=== PATIENT | female | born 1975 | race Caucasian/White ===

== ENCOUNTER → 2021-09-04 16:53 | Outpatient (CLI) | payer BC, SELFPAY ==
--- NOTE | ~2021-09-04 | MM_ITS ---
EXAMINATION: MM screening vin BI w vandana HISTORY: Screening mammogram TECHNIQUE: Craniocaudal and mediolateral oblique 3-D tomosynthesis images were obtained and synthetic 2-D images were generated. CAD analysis was submitted and interpreted. COMPARISON: 03/01/2019 bilateral screening mammogram 08/25/2017 bilateral diagnostic mammography and bilateral Limited breast ultrasound 08/11/2017 bilateral digital screening mammogram BREAST PARENCHYMAL COMPOSITION: The breasts are heterogeneously dense, which may obscure small masses . FINDINGS: There is no evidence of suspicious mass, calcification, or architectural distortion to sugg est malignancy in either breast. There has been no suspicious interval change. IMPRESSION: 1. No mammographic evidence of malignancy. 2. Recommend routine screening mammography in one year. BI-RADS Category 1: Negative Reviewed, dictated and finalized at location A.
== END ==
PROVIDERS: Visit Provider Nurse Practitioner
DX: Z12.31 Encounter for screening mammogram for malignant neoplasm of breast (principal)
CPT/HCPCS: 77063; 77067

== ENCOUNTER 2021-09-15 01:43 | Day surgery (SDC) | payer BC, SELFPAY ==
[2021-09-01 13:25] VITALS: BMI 34.9
--- NOTE | 2021-09-12 14:32 | PM.HPGS ---
History of Present Illness History of Present Illness Consent: Risks, benefits, and alternatives have been discussed and questions answered. Patient agrees to proceed with procedure. Chief complaint: neoplasm screening Narrative: Anna Castellanos is a 46 year old female Referred for colon cancer screening. This is her 1st colonoscopy. She is not aware of any family history of colon cancer. Review of Systems Review of Systems: All systems reviewed & are unremarkable except as noted in HPI and below PMFSH Surgical History Surgical History History of cholecystectomy 2013 History of gastric bypass 2018 Social History Social History Smoking status: Never smoker Alcohol intake: never Substance use: never Substance use type: does not use Living arrangements: with family Spiritual care concerns: No Meds Home Medications and Allergies Home Medications Medication Instructions Recorded Confirmed Type norethindrone ac-eth estradiol 1.5 - 30 tablet PO DAILY 09/01/21 09/15/21 History [ ()] Allergies Allergy/AdvReac Type Severity Reaction Status Date / Time No Known Allergies Allergy Verified 09/15/21 08:45 Exam Resp: Auscultation: clear to auscultation bilaterally Cardio: Rate: regular rate Rhythm: regular rhythm GI: GI Palp: Yes Soft to palpation and No Tenderness to palpation present (GI) Assessment and Plan Assessment and plan (1) Colon cancer screening: Code(s): Z12.11 - Encounter for screening for malignant neoplasm of colon Status: Acute Assessment and Plan: Colonoscopy with possible biopsy or polypectomy or cautery or injection of substances.
[2021-09-15 08:46] VITALS: BP 134/89; PULSE 76; RESP 16; TEMP 36.9; O2SAT 100
[2021-09-15] MEDS: LACTATED RINGERS 1,000 ML 150 ML IV CONT (08:49)
--- NOTE | 2021-09-15 09:16 | P.PNAN_ITS ---
Anes - Initial Pre Proc Eval Procedure: Operation Date: 09/15/21 09:30 Proposed Procedures p Screening Colonoscopy - Rajendra Pierce MD Date/Time: 09/15/21 09:16 Surgeon: Rajendra Pierce MD Pre Op Diagnosis: neoplasm screening Patient Data Age: 46 Gender: F Height: 1.57 m Weight: 86.6 kg Last Vital Signs Temp 98.4 F 09/15/21 08:46 Pulse 76 09/15/21 08:46 Resp 16 09/15/21 08:46 BP 134/89 09/15/21 08:46 Pulse Ox 100 09/15/21 08:46 Allergies Allergy/AdvReac Type Severity Reaction Status Date / Time No Known Allergies Allergy Verified 09/15/21 08:45 Home Medications Medication Instructions Recorded Confirmed Type norethindrone ac-eth estradiol 1.5 - 30 tablet PO DAILY 09/01/21 09/15/21 History [ ()] Patient hx anesthesia problems: none Family hx anesthesia problems: none Results Review: All pre-operative results and documents have been reviewed as part of the pre-operative evaluation. [facility] Surgical History Surgical History History of cholecystectomy 2014 History of gastric bypass 2018 Social History Social History Smoking status: Never smoker Alcohol intake: never Substance use: never Substance use type: does not use Living arrangements: with family Spiritual care concerns: No Anes - Eval Final PreProcedure Day of Procedure 09/15/21 09:16 Patient weight: obese Heart: regular rate and rhythm Lungs: clear to auscultation Airway: Mallampati scale class II Neurological: alert and oriented Last oral intake: >/= 8 hours ASA classification: II Emergent: no Anesthetic plan: proceed Anesthesia type and monitoring: general GIVS and standard monitoring Results Review: All pre-operative results and documents have been reviewed as part of the pre-operative evaluation. Informed Consent: The patient's anesthetic plan and its attendant risks and benefits were discussed with the patient/family/POA. Questions were solicited and answers provided to the satisfaction of the patient/family/POA.
[2021-09-15 09:47] VITALS: BP 117/72; PULSE 78; RESP 18; O2SAT 100
[2021-09-15 09:57] VITALS: BP 127/79; PULSE 77; RESP 18; O2SAT 99
[2021-09-15 10:07] VITALS: BP 135/72; PULSE 68; RESP 20; O2SAT 100
== END 2021-09-15 10:14 | disposition home or self-care (01) ==
PROVIDERS: PCP Internal Medicine; Visit Provider Internal Medicine Gastroenterology
PROC: 0DJD8ZZ Inspection of Lower Intestinal Tract, Via Natural or Artificial Opening Endoscopic (ICD-10-PCS; CPT 45378; principal; 2021-09-15 09:30)
DX: Z12.11 Encounter for screening for malignant neoplasm of colon (principal); Z98.84 Bariatric surgery status
CPT/HCPCS: 45378; J2704; J7120

== ENCOUNTER 2021-12-07 07:18 | Outpatient (CLI) | payer BC, SELFPAY ==
--- NOTE | ~2021-12-07 | MR_ITS ---
EXAMINATION: MR brain/brain stem wo/w con DATE: 12/07/2021 08:18 INDICATION: Migraine headache TECHNIQUE: Magnetic resonance imaging (MRI) of the brain and brainstem was performed without and with 18 mL Multihance intravenous contrast. Sequences included sagittal and axial T1-weighted SE, axial d iffusion-weighted FS SE, axial 3D SWAN, axial T2-weighted FLAIR, and axial T2-weighted FSE. Postcontr ast axial, sagittal and coronal T1-weighted SE was obtained. Apparent diffusion coefficient (ADC) map s were created. COMPARISON: None. FINDINGS: There are no areas of restricted diffusion to suggest acute infarction. No intracranial hemorrhage or abnormal intracranial mass lesion. There are few scattered foci of nonspecific increased T2-weighted signal intensity in the subcortical white matter, 5 on the right and 3 on the left which is slightly greater than normal for age. There are no intraparenchymal signal abnormalities seen on the other pu lse sequences. The ventricles are symmetric and normal in size. There are no abnormal extra-axial flu id collections. Flow voids are seen in the cerebral arteries on the T2-weighted sequences consistent with their expected patency. There is mucosal thickening in the bilateral ethmoid and maxillary sinus es. Visualized orbits and soft tissues are unremarkable. There are no areas of abnormal enhancement o n the post contrast images. IMPRESSION: 1. A few scattered small foci of increased subcortical white matter T2 hyperintensity which is slight ly greater than expected for age which can be seen with chronic migraines. The differential diagnosis also includes premature chronic small vessel ischemic disease (especially if the patient has cardiov ascular risk factors), demyelinating disease such as multiple sclerosis, drug abuse, vasculitis, or r eactive astrocytosis (gliosis) secondary to nonspecific etiology. Reviewed, dictated and finalized at location A. IMPRESSION: 1. A few scattered small foci of increased subcortical white matter T2 hyperint ensity which is slightly greater than expected for age which can be seen with c hronic migraines. The differential diagnosis also includes premature chronic sm all vessel ischemic disease (especially if the patient has cardiovascular risk factors), demyelinating disease such as multiple sclerosis, drug abuse, vasculi tis, or reactive astrocytosis (gliosis) secondary to nonspecific etiology.
[2021-12-07 07:57] LABS: Estimated Glomerular Filt Rate > 60
== END 2021-12-07 07:19 | disposition home or self-care (01) ==
PROVIDERS: PCP Internal Medicine; Visit Provider Psychiatry & Neurology Neurology
DX: G43.909 Migraine, unspecified, not intractable, without status migrainosus (principal); R93.0 Abnormal findings on diagnostic imaging of skull and head, not elsewhere classified
CPT/HCPCS: 70553; A9577

== ENCOUNTER 2022-11-13 06:54 | Outpatient (RCR) | payer BC, SELFPAY ==
[2022-11-12 17:00] LABS: Hematocrit 26.6 % (37.0-47.0); Hemoglobin 7.2 g/dL (12.0-15.0); Mean Corpuscular HGB Conc 27.1 g/dl (32-36); Mean Corpuscular Volume 70.2 fl (80-100); Platelet Count Result 360 k/mm3 (150-375); Red Blood Count 3.79 M/mm3 (4.2-5.4); Red Cell Distribution Width 24.5 % (11.5-14.5); White Blood Count 4.8 K/mm3 (4.5-10.0)
[2022-11-13] VITALS (11 sets, daily range): BP systolic 115–140; BP diastolic 74–92; PULSE 65–98; RESP 16–18; TEMP 36.7–37.2; O2SAT 93–100
[2022-11-13] MEDS: SODIUM CHLORIDE 0.9% IV 250 ML 30 ML IV CONT (07:30)
[2022-11-13] MEDS: FUROSEMIDE INJ 40 MG/4 ML VIAL 20 MG IV PUSH (10:26)
== END 2023-02-10 23:59 | disposition home or self-care (01) ==
LOC: ANHCPCTRAN 06:54
PROVIDERS: PCP Internal Medicine; Visit Provider Internal Medicine
DX: D64.9 Anemia, unspecified (principal)
CPT/HCPCS: 36415; 36430; 85027; 86850; 86900; 86901; 86920; J1940; J7050; P9016

== ENCOUNTER 2022-11-25 16:20 | Outpatient (CLI) | payer BC, SELFPAY ==
--- NOTE | ~2022-11-25 | XR_ITS ---
EXAMINATION: XR knee RT min 4V DATE: 11/25/2022 16:41 INDICATION: Right knee pain. TECHNIQUE: 4 views of right knee including standing views were obtained. COMPARISON: None. FINDINGS: Bone alignment is normal. No fracture. There is mild tricompartmental osteoarthritis charac terized by marginal osteophytes. No joint space narrowing. No knee joint effusion. IMPRESSION: 1. Mild right knee osteoarthritis. Reviewed, dictated and finalized at location E.
== END 2022-11-25 16:21 | disposition home or self-care (01) ==
PROVIDERS: PCP Internal Medicine; Visit Provider Internal Medicine
DX: M17.11 Unilateral primary osteoarthritis, right knee (principal)
CPT/HCPCS: 73564

== ENCOUNTER → 2023-01-14 15:28 | Outpatient (CLI) | payer BC, SELFPAY ==
--- NOTE | ~2023-01-14 | MM_ITS ---
EXAMINATION: MM screening vin BI w vandana HISTORY: Screening mammogram TECHNIQUE: Craniocaudal and mediolateral oblique 3-D tomosynthesis images were obtained and synthetic 2-D images were generated. CAD analysis was submitted and interpreted. COMPARISON: 09/04/2021, 02/15/2019 BREAST PARENCHYMAL COMPOSITION:The breasts are heterogeneously dense, which may obscure small masses. FINDINGS: There is apparent increasing 2.7 cm ovoid density in the outer subareolar left breast. No s uspicious parenchymal abnormality seen in the right breast. Benign calcifications are unchanged. IMPRESSION: Suspected increasing 2.7 cm ovoid density/mass in the outer left subareolar region. Spot compression views and ultrasound are recommended for further evaluation. BI-RADS Category 0: Incomplete: Needs additional imaging evaluation. Reviewed, dictated and finalized at location . IMPRESSION: Suspected increasing 2.7 cm ovoid density/mass in the outer left subareolar reg ion. Spot compression views and ultrasound are recommended for further evaluati on. BI-RADS Category 0: Incomplete: Needs additional imaging evaluation.
== END ==
PROVIDERS: PCP Nurse Practitioner; Visit Provider Nurse Practitioner
DX: Z12.31 Encounter for screening mammogram for malignant neoplasm of breast (principal)
CPT/HCPCS: 77063; 77067

== ENCOUNTER 2023-02-16 14:24 | Outpatient (CLI) | payer BC, SELFPAY ==
--- NOTE | ~2023-02-16 | MMUS_ITS ---
EXAMINATION: MM diagnostic vin LT w vandana, US breast LT limited HISTORY: Possible left breast mass TECHNIQUE: Additional 3-D tomosynthesis images of the left breast were performed and synthetic 2-D im ages were generated. CAD analysis was submitted and interpreted. High resolution limited left breast ultrasound was performed. COMPARISON: 01/14/2023, 09/04/2021, 02/15/2019 BREAST PARENCHYMAL COMPOSITION: The breasts are heterogeneously dense, which may obscure small masses . FINDINGS: MAMMOGRAPHIC FINDINGS: There is an approximately 2.5 cm oval, obscured, equal density mass in the anterior third of the slig htly outer breast at 3:00 location near the nipple. No suspicious calcification or architectural dist ortion are identified. ULTRASOUND: There is a 3.2 x 1.4 cm oval, circumscribed, parallel, hypoechoic mass with no posterior features or internal vascularity at the 3:00 location near the nipple. IMPRESSION: 1. Indeterminate left breast mass. 2. Ultrasound-guided left breast biopsy is recommended. BI-RADS category 4, suspicious findings. Reviewed, dictated and finalized at location A. IMPRESSION: 1. Indeterminate left breast mass. 2. Ultrasound-guided left breast biopsy is recommended. BI-RADS category 4, suspicious findings.
== END 2023-02-16 14:25 ==
PROVIDERS: PCP Obstetrics & Gynecology Gynecology; Visit Provider Obstetrics & Gynecology Gynecology
DX: R92.8 Other abnormal and inconclusive findings on diagnostic imaging of breast (principal)
CPT/HCPCS: 76642; 77061; 77065; G0279

== ENCOUNTER 2023-03-08 02:37 | Day surgery (SDC) | payer BC, SELFPAY ==
[2023-01-08 13:32] VITALS: BMI 40.3
[2023-02-24 13:07] VITALS: BMI 40.3
--- NOTE | 2023-03-05 15:10 | PM.HPGS ---
History of Present Illness History of Present Illness Consent: Risks, benefits, and alternatives have been discussed and questions answered. Patient agrees to proceed with procedure. Chief complaint: Iron Deficiency Anemia Narrative: Anna Castellanos is a 47 year old female Referred for investigation of iron deficiency anemia. Recent hemoglobin was down to 7.2. MCV is also low suggestive of iron deficiency anemia. She had an unremarkable colonoscopy just over 1 year ago. however at that time there was retained stool in the colon. Review of Systems Review of Systems: All systems reviewed & are unremarkable except as noted in HPI and below PMFSH Surgical History Surgical History History of cholecystectomy 2013 History of gastric bypass 2017 Social History Social History Smoking status: Never smoker Alcohol intake: never Substance use: never Substance use type: does not use Living arrangements: with family Spiritual care concerns: No Meds Home Medications and Allergies Home Medications Medication Instructions Recorded Confirmed Type norethindrone acetate 1.5 1.5 - 30 tablet PO DAILY 09/01/21 01/08/23 History mg-ethinyl estradiol 30 mcg tablet (Junel) multivitamin 1 tablet PO DAILY 11/26/21 01/08/23 History cholecalciferol (vitamin D3) 50 50 mcg PO DAILY 01/08/23 01/08/23 History mcg (2,000 unit) capsule (Vitamin D3) ferrous sulfate 325 mg (65 mg 325 mg PO DAILY 01/08/23 01/08/23 History iron) tablet Allergies Allergy/AdvReac Type Severity Reaction Status Date / Time No Known Allergies Allergy Verified 03/08/23 09:03 Exam Resp: Auscultation: clear to auscultation bilaterally Cardio: Rate: regular rate Rhythm: regular rhythm GI: GI Palp: Yes Soft to palpation and No Tenderness to palpation present (GI) Assessment and Plan Assessment and plan (1) Iron deficiency anemia: Code(s): D50.9 - Iron deficiency anemia, unspecified Status: Acute Assessment and Plan: EGD with possible biopsy or dilatation or cautery.Colonoscopy with possible biopsy or polypectomy or cautery or injection of substances.
[2023-03-08 09:03] VITALS: BP 126/79; PULSE 71; RESP 18; TEMP 36.4; O2SAT 100
[2023-03-08] MEDS: LACTATED RINGERS 1,000 ML 150 ML IV CONT (09:13)
--- NOTE | 2023-03-08 10:10 | SUR.OPER ---
egd ended at 1002 and colonoscopy started at 1009
[2023-03-08 10:26] VITALS: BP 116/75; PULSE 86; RESP 20; O2SAT 100
[2023-03-08 10:36] VITALS: BP 119/77; PULSE 78; RESP 20; O2SAT 100
[2023-03-08 10:46] VITALS: BP 121/73; PULSE 70; RESP 20; O2SAT 100
== END 2023-03-08 10:51 | disposition home or self-care (01) ==
PROVIDERS: PCP Internal Medicine; Referring Provider Obstetrics & Gynecology Gynecology; Visit Provider Internal Medicine Gastroenterology
PROC: 0DJ08ZZ Inspection of Upper Intestinal Tract, Via Natural or Artificial Opening Endoscopic (ICD-10-PCS; CPT 43235; principal; 2023-03-08 10:00)
DX: D50.9 Iron deficiency anemia, unspecified (principal); K29.80 Duodenitis without bleeding; K21.9 Gastro-esophageal reflux disease without esophagitis; Z98.84 Bariatric surgery status
CPT/HCPCS: 45378; 43239; 87081; 88305; J2001; J2704; J7120

== ENCOUNTER 2023-04-06 15:37 | Outpatient (CLI) | payer BC, SELFPAY ==
[2023-04-06 15:53] LABS: Basophils Percent Auto 0.5 % (0.2-1.2); Eosinophils Absolute Auto 0.1 K/mm3 (0-0.3); Eosinophils Percent Auto 0.9 % (0-4.4); Hematocrit 40.2 % (37.0-47.0); Hemoglobin 13.1 g/dL (12.0-15.0); Immature Granulocyte Absolute 0.02 K/mm3 (0.00-0.031); Immature Granulocyte Percent A 0.3 % (0-0.5); Lymphocytes Absolute Auto 1.64 K/mm3 (0.9-3.2); Lymphocytes Percent Auto 21.5 % (18.3-44.2); Mean Corpuscular HGB Conc 32.6 g/dl (32-36); Mean Corpuscular Hemoglobin 29.3 pg (26-34); Mean Corpuscular Volume 89.9 fl (80-100); Mean Platelet Volume 9.7 fl (7.4-10.4); Monocytes Absolute Auto 0.5 K/mm3 (0.1-0.6); Monocytes Percent Auto 6.2 % (2.6-8.5); Neutrophils Absolute Auto 5.4 K/mm3 (1.3-6.7); Neutrophils Percent Auto 70.6 % (45.5-73.1); Platelet Count Result 351 k/mm3 (150-375); Red Blood Count 4.47 M/mm3 (4.2-5.4); Red Cell Distribution Width 13.9 % (11.5-14.5); White Blood Count 7.6 K/mm3 (4.5-10.0)
[2023-04-06 17:21] LABS: Iron 51 ug/dL (37-170)
[2023-04-06 17:35] LABS: Percent Iron Saturation 13 % (20-50)
[2023-04-06 20:12] LABS: Alanine Aminotransferase 19 U/L (6-35); Albumin Level 4.4 g/dL (3.5-5.1); Alkaline Phosphatase 69 U/L (38-126); Anion Gap 11 mmol/L (8-16); Aspartate Amino Transferase 23 U/L (14-36); Bilirubin,Total 0.5 mg/dL (0.2-1.3); Blood Urea Nitrogen 14 mg/dL (7-17); Calcium 9.4 mg/dL (8.4-10.2); Carbon Dioxide 25 mmol/L (22-30); Chloride 103 mmol/L (98-107); Estimated Glomerular Filt Rate > 60; Glucose 87 mg/dL (65-110); Lactate Dehydrogenase 153 U/L (120-246); Potassium 4.7 mmol/L (3.4-5.0); Sodium 139 mmol/L (137-145)
[2023-04-06 21:23] LABS: Folic Acid 15.6 ng/mL (2.76->20)
[2023-04-10 07:33] LABS: Methylmalonic Acid 389 nmol/L (87-318)
[2023-04-10 18:41] LABS: Soluble Transferrin Receptor 1.08 mg/L (0.76-1.76)
== END 2023-04-06 15:38 | disposition home or self-care (01) ==
PROVIDERS: Nurse Practitioner Family; PCP Internal Medicine; Visit Provider Internal Medicine Hematology & Oncology
DX: D50.9 Iron deficiency anemia, unspecified (principal)
CPT/HCPCS: 36415; 80053; 82607; 82728; 82746; 83540; 83550; 83615; 83921; 84238; 85025

== ENCOUNTER 2023-08-30 15:17 | Outpatient (CLI) | payer OTHER, SELFPAY ==
[2023-08-30 15:36] LABS: Hematocrit 40.4 % (37.0-47.0); Hemoglobin 13.2 g/dL (12.0-15.0); Mean Corpuscular HGB Conc 32.7 g/dl (32-36); Mean Corpuscular Hemoglobin 30.3 pg (26-34); Mean Corpuscular Volume 92.7 fl (80-100); Mean Platelet Volume 9.6 fl (7.4-10.4); Platelet Count Result 277 k/mm3 (150-375); Red Blood Count 4.36 M/mm3 (4.2-5.4); Red Cell Distribution Width 13.3 % (11.5-14.5); White Blood Count 5.8 K/mm3 (4.5-10.0)
[2023-08-30 21:30] LABS: Iron 78 ug/dL (37-170)
[2023-08-30 21:32] LABS: Anion Gap 7 mmol/L (4-12); Blood Urea Nitrogen 17 mg/dL (7-17); Calcium 9.5 mg/dL (8.4-10.2); Carbon Dioxide 24 mmol/L (22-30); Chloride 109 mmol/L (98-107); Estimated Glomerular Filt Rate 59; Glucose 80 mg/dL (65-110); Potassium 4.2 mmol/L (3.4-5.0); Sodium 140 mmol/L (137-145)
[2023-08-30 21:40] LABS: Percent Iron Saturation 23 % (20-50)
[2023-08-30 22:45] LABS: Vitamin B12 > 1000.0 pg/mL (239-931)
== END 2023-08-30 15:18 | disposition home or self-care (01) ==
LOC: ANHLAB 15:24
PROVIDERS: Nurse Practitioner Family; PCP Internal Medicine; Visit Provider Internal Medicine Hematology & Oncology
DX: D64.9 Anemia, unspecified (principal)
CPT/HCPCS: 36415; 80048; 82607; 82728; 82746; 83540; 83550; 85027

== ENCOUNTER 2024-04-18 08:24 | Outpatient (CLI) | payer OTHER, SELFPAY ==
--- NOTE | ~2024-04-18 | CT_ITS ---
EXAMINATION: CT abdomen pelvis w con DATE: 04/18/2024 08:57 INDICATION: Abdominal pain TECHNIQUE: Computed tomography (CT) of the abdomen and pelvis was performed with 100 mL Omnipaque-350 intravenous contrast. Automated exposure control and iterative reconstruction technique were employe d. The dose-length product was 1102.84 mGy-cm. COMPARISON: None FINDINGS: Lung bases are clear. Heart size is normal. No pericardial or pleural effusion. Postoperative change of prior Juwan-en-Y gastric bypass procedure with retrocolic Juwan limb extending to the jejunojejunal anastomosis in the left abdomen. There is a suture line extending along the lateral margin of a likel y small gallbladder remnant consistent with a likely partial cholecystectomy. Centimeter cyst in the left hepatic lobe. Spleen, pancreas, bilateral adrenal glands and kidneys are normal. Bowels are unre markable including a normal appendix. Tampon within the vaginal vault. Bladder and anteverted uterus are normal. 2.2 similar right-sided and 2.5 cm left-sided bilateral ovarian follicles. No free intrap eritoneal gas or fluid. No pathologically enlarged abdominal or pelvic lymphadenopathy. Mild lumbar levocurvature with mild to moderate spondylosis. IMPRESSION: 1. No acute intra-abdominal/pelvic process. 2. Postoperative change including Juwan-en-Y gastric bypass procedure and likely partial cholecystecto my with suture line along the small remaining gallbladder remnant. Reviewed, dictated and finalized at location A. 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 No acute intra-abdominal/pelvic process. 2. Postoperative change including Juwan-en-Y gastric bypass procedure and likely partial cholecystectomy with suture line along the small remaining gallbladder remnant.
== END 2024-04-18 08:25 | disposition home or self-care (01) ==
LOC: MICIMG 08:25
PROVIDERS: PCP Internal Medicine; Visit Provider Internal Medicine
DX: R10.9 Unspecified abdominal pain (principal)
CPT/HCPCS: 74177; Q9967

== ENCOUNTER 2024-07-21 09:56 | Outpatient (CLI) | payer OTHER, SELFPAY ==
--- NOTE | 2024-07-21 | EST_ITS ---
Patient Info Name: Anna Castellanos Age: 49 years : 1975 Gender: Female Ht: 62 in Wt: 220 lbs BSA: 2.14 m2 Exam Date: 07/21/2024 11:09 AM Exam Location: Echo Lab Patient Status: Outpatient Admit Date: 07/21/2024 Staff Ordering Physician: Lance, Felice Vázquez MD Attending Provider: Lance, Felice Vázquez MD Exercise Technologist: Angela Gómez RDCS Exercise Physician: Yaya Avalos DO Exam Type: CA stress test treadmill w NM Study Info Indications R00.2 - Palpitations A nuclear stress test was performed. Summary 1. 1. Negative Epifanio exercise stress test for ischemic ST changes by ECG criteria. 2. 2. Good functional capacity, achieving 9 METs of workload. 3. 3. Appropriate HR response to exercise. 4. 4. Appropriate HR recovery at 1 minute post exercise. 5. 5. Nuclear scan to follow and will be reported separately. Please correlate with it. 6. 6. Patient informed of the above results. Protocol: Epifanio Stress ECG Details Stage: REST Duration (min): 0 min : 54 sec Speed (mph): 0.0 Grade (%): 0 HR (bpm): 69 SBP (mmHg): 127 DBP (mmHg): 87 METS: --- Stage: REST Duration (min): 3 min : 9 sec Speed (mph): 0.0 Grade (%): 0 HR (bpm): 97 SBP (mmHg): 127 DBP (mmHg): 87 METS: --- Stage: STAGE 1 Duration (min): 1 min : 0 sec Speed (mph): 1.7 Grade (%): 10 HR (bpm): 109 SBP (mmHg): 127 DBP (mmHg): 87 METS: --- Stage: STAGE 1 Duration (min): 2 min : 0 sec Speed (mph): 1.7 Grade (%): 10 HR (bpm): 119 SBP (mmHg): 127 DBP (mmHg): 87 METS: --- Stage: STAGE 1 Duration (min): 3 min : 0 sec Speed (mph): 1.7 Grade (%): 10 HR (bpm): 124 SBP (mmHg): 169 DBP (mmHg): 86 METS: --- Stage: STAGE 2 Duration (min): 1 min : 0 sec Speed (mph): 2.5 Grade (%): 12 HR (bpm): 134 SBP (mmHg): 169 DBP (mmHg): 86 METS: --- Stage: STAGE 2 Duration (min): 2 min : 0 sec Speed (mph): 2.5 Grade (%): 12 HR (bpm): 141 SBP (mmHg): 170 DBP (mmHg): 88 METS: --- Stage: STAGE 2 Duration (min): 3 min : 0 sec Speed (mph): 2.5 Grade (%): 12 HR (bpm): 143 SBP (mmHg): 170 DBP (mmHg): 88 METS: --- Stage: STAGE 3 Duration (min): 1 min : 0 sec Speed (mph): 3.4 Grade (%): 14 HR (bpm): 160 SBP (mmHg): 178 DBP (mmHg): 92 METS: --- Stage: STAGE 3 Duration (min): 1 min : 30 sec Speed (mph): 3.4 Grade (%): 14 HR (bpm): 163 SBP (mmHg): 178 DBP (mmHg): 92 METS: --- Stage: RECOVERY Duration (min): 0 min : 29 sec Speed (mph): 0.0 Grade (%): 0 HR (bpm): 149 SBP (mmHg): 178 DBP (mmHg): 92 METS: --- Stage: RECOVERY Duration (min): 1 min : 29 sec Speed (mph): 0.0 Grade (%): 0 HR (bpm): 117 SBP (mmHg): 176 DBP (mmHg): 79 METS: --- Stage: RECOVERY Duration (min): 2 min : 29 sec Speed (mph): 0.0 Grade (%): 0 HR (bpm): 101 SBP (mmHg): 176 DBP (mmHg): 79 METS: --- Stage: RECOVERY Duration (min): 3 min : 29 sec Speed (mph): 0.0 Grade (%): 0 HR (bpm): 107 SBP (mmHg): 155 DBP (mmHg): 78 METS: --- Stage: RECOVERY Duration (min): 4 min : 29 sec Speed (mph): 0.0 Grade (%): 0 HR (bpm): 99 SBP (mmHg): 153 DBP (mmHg): 81 METS: --- Stage: RECOVERY Duration (min): 5 min : 29 sec Speed (mph): 0.0 Grade (%): 0 HR (bpm): 95 SBP (mmHg): 153 DBP (mmHg): 81 METS: --- Stage: RECOVERY Duration (min): 6 min : 29 sec Speed (mph): 0.0 Grade (%): 0 HR (bpm): 96 SBP (mmHg): 124 DBP (mmHg): 80 METS: --- Stage: RECOVERY Duration (min): 6 min : 38 sec Speed (mph): 0.0 Grade (%): 0 HR (bpm): 98 SBP (mmHg): 124 DBP (mmHg): 80 METS: --- Rest HR: 97 bpm Peak HR: 164 bpm Rest Sys BP: 127 mmHg Peak Sys BP: 178 mmHg Max Pred HR: 171 bpm % Max Pred HR: 96 % Target HR: 145 bpm Max RPP: 29,192 bpm*mmHg Ortega Score: 2 Termination Reason: Reached target heart rate or workload Cardiac Symptoms: Shortness of breath Max ST Seg Deviation: 1 mm Total Time: 7 min : 30 sec Rest Martines BP: 87 mmHg Peak Martines BP: 92 mmHg Angina Score: None Total METS: 9.8 Resting ECG Sinus rhythm, IRBBB. Stress ECG No ST changes. Arrhythmias None. Report Signatures
--- NOTE | ~2024-07-21 | NM_ITS ---
EXAMINATION: NM stress w perf spect multi DATE: 07/21/2024 12:53 INDICATION: Heart palpitations TECHNIQUE: Rest images were obtained following intravenous administration of 10.2 mCi Tc99m tetrofosm in (Omicia). The patient performed an exercise activity. At peak exercise, 24.3 mCi Tc99m tetrofosmi n (Myoview) was administered intravenously, and stress images were obtained. Data was reconstructed i nto short axis and horizontal and vertical long axis SPECT images. Gated SPECT images were also obtai vivian. COMPARISON: None. FINDINGS: There is normal left ventricular perfusion without definite evidence of reversible or fixed perfusion abnormality to suggest ischemia or infarction. There is normal left ventricular chamber size, wall motion and ejection fraction. Left ventricular ejection fraction measures >70%. IMPRESSION: 1. Normal myocardial perfusion at rest and during stress. 2. Left ventricular ejection fraction measuring >70%. Reviewed, dictated and finalized at location B. [facility]
--- OUTSIDE RECORDS SUMMARY | 2024-07-21 10:57 | XMS_ITS | Encounter Summary ---
Author Organization [facility] Healthcare Address [address] [place] [address] Care Team Providers Care Data Systems Manager Name Role Phone Unavailable Primary Care Provider Unavailabl e Reason for Visit * Diagnostic Imaging (Routine) - Closed Specialty Diagnoses / Procedures Referred By Contlior t Referred To Contact Procedures Breast Imaging Screening Outside Reference Jenelle Montejo NP [address] [phone] [place] [address] Phone: tel: fax: Referral ID Status Reason Start Date Expiration Date Visits Re quested Visits Authorized [id number] Closed 03/16/2023 04/14/2024 1 1 Encounter Details Date Type Department Care Team (Late st Contact Info) Description 02/15/2019 Hospital Encounter [facility] [address] [place] [id number] Social History Tobacco Use Types Packs/Day Years Used Date Smoking Tobacco: Never Smokeless Tobacco: Never Personal Safety Answer Date Recorded Getting School Help Needed Not on file 01/21 Comments No Sex and Gender Information Value Date Recorded Sex Assigned at Not on file Legal Sex Female 3:53 AM [employer] Gender Identity Not on file Sexual Orientation Not on file documented as of this encounter Plan of Treatment Not on file documented as of this encounter Procedures Procedure Name Priority Date/Time Associated Diagnosis Comments BREAST IMAGING MG SCREENING OUTSIDE REFERENCE Routine 02/15/2019 12:00 AM CDT documented in this encounter Results * Breast Imaging Screening Outside Reference (02/15/2019 12:00 AM CDT) Impressions [facility] - 03/16/2023 2:24 PM CDT These images are for Reference purposes only and have not been reviewed by [facility]. There will be no report generated by a [facility] Radiologist. Narrative [facility] - 03/16/2023 2:24 PM CDT EXAMINATION: Images For Reference Purposes Only us Jenelle Montejo NP IMG MAMMO PROCEDURES Final Result [facility] documented in this encounter Visit Diagnoses Not on filedocumented in this encounter Additional Health Concerns Infection Onset Date Last Indicated Resolved Time COVID: Suspected 01/09/2023 01/09/2023 01/09/2023 7:13 PM CDT documented as of this encounter
--- OUTSIDE RECORDS SUMMARY | 2024-07-21 10:57 | XMS_ITS | Clinical Summary ---
Author Organization [facility] Vicky Shahesa Address [address] [place] [address] Care Team Providers Care Data Steward Name Role Phone Felice Lucas MD Primary Care Provider [phone] Allergies No known active allergies Medications norethindrone Ac-Eth estradiol (June,) 1.5-30 mg-mcg tablet Take 1 Tablet by mouth daily. 02/11/2023 Active CALCIUM CARBONATE-VITAMI N D3 ORAL Take by mouth. Active multivitamin (DAILY-KESHAV) tablet Take 1 Tablet by mouth daily. Active ferrous fumarate 89 mg (29 mg iron) Tablet Take 89 mg by mouth daily. Active cyanocobalamin (VITAMIN B-12) 50 mcg Tablet Take by mouth daily. Active iron/folic ac/vit Bcomp,C/min (B [id number] -FA ORAL) Take by mouth daily. Active Active Problems No known active problems Encounters Date Type Department Care Team Description 07/18/2024 External Device Data [facility] ABSTRACTION Provider, Abstract 07/04/2024 External Device Data [facility]CTION Provider, Abstract 06/07/2024 External Device Data [facility] Provider, Abstract 06/06/2024 External Device Data [facility] Provider, Abstract 05/31/2024 External Device Data [facility]STRACTION Provider, Abstract from Last 3 Months Family History Medical History Relation Name Comments Diabetes Father Heart Disease Father Relation Name Status Comments Brother Alive Daughter Alive Father Mother Alive Social History Tobacco Use Types Packs/Day Years Used Date Smoking Tobacco: Never Tobacco Cessation:Counseling Given: Not Answered Alcohol Use Standard Drinks/Week Comments Not Currently 0 (1 standard drink = 0.6 oz pur e alcohol) Comments Unknown Sex and Gender Information Value Date Recorded Sex Assigned at Not on file Legal Sex Female 2:06 PM CDT Gender Identity Not on file Sexual Orientation Not on file Last Filed Vital Signs Vital Sign Reading Time Taken Comments Blood Pressure 120/81 08/31/2023 3:21 PM CDT Pulse 95 08/31/2023 3:21 PM CDT Temperature 36.8 C (98.2 F) 08/31/2023 3:21 PM CDT Respiratory Rate 16 08/31/2023 3:21 PM CDT Oxygen Saturation 98% 08/31/2023 3:21 PM CDT Inhaled Oxygen Concentration - - Weight 93 kg (205 lb) 08/31/2023 3:21 PM CDT Height 157.5 cm (5' 2 ) 04/06/2023 2:34 PM [employer]OM[employer] HEAD Body Mass Index 37.49 04/06/2023 2:34 PM [employer]OMET[employer] [facility] Plan of Treatment Health Maintenance Due Date Last Done Comments Pre-Diabetes and Diabetes Screening 1975 DTAP/TDAP/TD VACCINES (1 - Tdap) 1994 HEPATITIS B VACCINES (1 of 3 - 19+ 3-dose series) 1994 CERVICAL CANCER SCREENING 2005 BREAST CANCER SCREENING 2015 09/30/19 13, 09/29/2012 COLORECTAL SCREENING 2020 Colorectal Cancer Screening 2020 FIT-DNA Q 3 years 2020 FIT/FOBT Q 1 year 2020 Flex Sig/CT Colonography Q 5 years 2020 INFLUENZA VACCINE (#1) 2023 PNEUMOCOCCAL VACCINE 0-49 YEARS Aged Out No longer eligible b ased on patient's age to complete this topic Insurance [facility] CHOICE [id number] Care Teams Data Steward Relationship Specialty Start Date End Date Felice Lucas MD [address] [place] [phone] PCP - General Internal Medicine 04/06/23
--- OUTSIDE RECORDS SUMMARY | 2024-07-21 10:57 | XMS_ITS | Clinical Summary ---
Author Organization [facility] Address [address] [place] [address] Care Team Providers Care Bus Driver/Monitor Name Role Phone Felice Lucas MD Primary Care Provider Ute Birmingham MD Unavailable [phone] Allergies No known active allergies Medications , 21, 1.5-30 mg-mcg tablet per tablet 02/11/2023 A ctive Active Problems Problem Noted Date Diagnosed Date Mass of breast 09/23/2012 Surgical History Surgery Date Site/Laterality Comments GASTRIC BYPASS BREAST BIOPSY 04/14/2023 Left Medical History Medical History Date Comments Hypertension Family History Medical History Relation Name Comments Epilepsy Brother No Known Problems Mother Lung cancer Mother's Brother Heart disease Paternal Grandfather Relation Name Status Comments Brother Mother Mother's Brother Paternal Grandfather Social History Tobacco Use Types Packs/Day Years Used Date Smoking Tobacco: Never Smokeless Tobacco: Never Tobacco Cessation:Counseling Given: Not Answered Personal Safety Answer Date Recorded Getting School Help Needed Not on file 01/21 Comments No Sex and Gender Information Value Date Recorded Sex Assigned at Not on file 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 Gender Identity Not on file Sexual Orientation Not on file Obstetrics History Last Filed Vital Signs Vital Sign Reading Time Taken Comments Blood Pressure 120/81 01/09/2023 7:45 PM CDT Pulse 75 01/09/2023 7:45 PM CDT Temperature 36.5 C (97.7 F) 01/09/2023 6:00 PM CDT Respiratory Rate 13 01/09/2023 7:45 PM CDT Oxygen Saturation 98% 01/09/2023 7:45 PM CDT Inhaled Oxygen Concentration - - Weight 90.7 kg (200 lb) 04/02/2023 8:01 AM SHOW OPERATIONS SUPERVISOR Height 157.5 cm (5' 2 ) 04/02/2023 8:01 AM SHOW OPERATIONS SUPERVISOR Body Mass Index 36.58 04/02/2023 8:01 AM SHOW OPERATIONS SUPERVISOR Plan of Treatment Health Maintenance Due Date Last Done Comments Cervical Cancer Screening 1975 Colon Cancer Screening-Colonoscopy 1975 Depression Screening 1975 Hepatitis C Screening 1975 DTaP/Tdap/Td Vaccine (1 - Tdap) 1986 Hepatitis B Screening 1993 Regular Well Visit/Exam 18-64 1993 Breast Cancer Screening-Mammogram 09/29/2013 09/29/2012 Covid-19 Vaccine (2023-2 5 season) 2024 05/23/2021, 08/30/2020, 08/06/2020 Influenza Vaccine (#1) 2024 Pneumococcal vaccine <65 Aged Out No longer eligible based on patient's age to complete this topic Medical Devices Implanted Type Area Chain Repairer Device Identifier Shelf Expiration Date Model / Serial / Lot Bard Peripheral Vascular Ultraclip Bard 17ga 10cm 2 Trigger Permanent Ultrasound [id number] - [id number] Implanted:Qty: 1 on 04/14/2023 at [facility] [employer] [id number] / / Procedures Procedure Name Priority Date/Time Associated Diagnosis Comments SCREENING MAMMOGRAM W JULY Routine 09/29/2012 11:01 AM CDT from Last 3 Months or Most Recently Relevant to Health Maintenance Results * Screening Mammogram W July (09/29/2012 11:01 AM CDT) Anatomical Region Laterality Modality Breast N/A Mammography 09/29/2012 11:0 1 AM CDT Narrative 09/29/2012 2:38 PM CDT MERCY CAMPOS MD, PHD TORIE YEAGER M.D. FINAL REPORT The radiology attending physician has personally reviewed this study, and has reviewed and/or edited this written report and agrees with it. ACC# Date Time Exam [id number] September 29, 2012 11:01:00 [facility] [id number] Diag Mammogram Unilateral L Technologist(s): Nancy Lance; ; [id number] September 29, 2012 11:01:00 [facility] [id number] Unilateral Tomosynthesis L Technologist(s): Nancy Lance; ; [id number] September 29, 2012 11:33:00 [facility] [id number] Sono Breast (Bilateral) [id number] September 29, 2012 12:37:00 [facility] [id number] Consult Out Films (read) EXAMINATION: I. READING OF OUTSIDE IMAGING EXAMINATION - Bilateral digital diagnostic mammogram and Ultrasound II. LEFT FULL FIELD DIGITAL DIAGNOSTIC MAMMOGRAM AND BILATERAL BREAST SONOGRAM HISTORY: 37-year-old woman with an abnormal baseline mammogram from another institution. Per report, no subsequent mammographic abnormalities were identified on the diagnostic examination; however, biopsy was recommended for bilateral findings seen by ultrasound, including a shadowing area of concern in the RIGHT breast at 7:00 and a subcentimeter mass in the the LEFT breast at 7:00-8:00. Interpretation of the patient's outside mammogram is requested by Dr. Nash who is seeing the patient in Breast Surgery Clinic today. Also, diagnostic imaging evaluation is requested, if indicated. I. EXAMINATION - READING OF OUTSIDE IMAGING EXAMINATION - Bilateral mammogram and ultrasound performed at [facility] on 09/21/2012 DATE OF INTERPRETATION: 09/29/2012 COMPARISON: Screening baseline mammogram dated 06/10/2012 performed at [facility] BREAST PARENCHYMAL COMPOSITION: Heterogeneously dense, which could obscure detection of small masses. FINDINGS: There is a focal asymmetry within the upper central LEFT breast. There are no suspicious masses, architectural distortion, or calcifications within the RIGHT breast. Review of static ultrasound images of both breasts show a possible area of shadowing within the RIGHT breast at 7:00, anterior depth approximately 9.5 cm from the nipple and a 5 mm lobular nearly anechoic mass in the LEFT breast at 7-8:00 approximately 7 cm from the nipple. Additional tomographic images of the LEFT breast will be obtained to evaluate for the focal asymmetry identified. BILATERAL ultrasound will also be performed for the areas of concern within both breasts on outside imaging. II. LEFT FULL FIELD DIGITAL DIAGNOSTIC MAMMOGRAM AND BILATERAL BREAST SONOGRAM MAMMOGRAM TECHNIQUE: Additional views of the LEFT breast were obtained utilizing full field digital mammography. BREAST PARENCHYMAL COMPOSITION: Heterogeneously dense, which could obscure detection of small masses. MAMMOGRAM FINDINGS: Additional views of the LEFT breast demonstrate that the focal asymmetry may simply represent normal tissue; no focal mass or distortion is identified. Given the patient's dense parenchyma, targeted ultrasound of this area was also performed. SONOGRAM FINDINGS: Directed sonogram of the upper central LEFT breast was performed. No focal abnormal solid or cystic lesion is identified in the vicinity of the mammographic finding of concern. Directed sonogram of the lower inner LEFT breast was performed. At 8:00 approximately 6 cm from the nipple, there is a 5 mm lobular anechoic circumscribed mass which corresponds to the area of concern on the prior outside ultrasound, which is compatible with a simple cyst. Directed sonogram of the lower outer RIGHT breast was performed, with especial attention to the 7:00 axis. No focal abnormal solid or cystic lesion is identified in the vicinity of the finding of concern on recent screening mammogram. IMPRESSION: 1) Finding of concern on the outside ultrasound in the lower inner LEFT breast corresponds with a subcentimeter simple cyst. 2) No suspicious abnormality is confirmed in the area of concern in the lower outer RIGHT breast. 3) No suspicious abnormality is confirmed in the upper central LEFT breast. 4) Annual screening mammography is recommended. OVERALL FINAL ASSESSMENT: BI-RADS Category 2: Benign finding. These findings were communicated in writing by Dr. Campos to Dr. Nash, who is seeing the patient in surgery clinic today. Requested By: LUISA NASH M.D. Dictated By: TORIE YEAGER M.D. on Sep 29 2012 12:59P This document has been electronically signed by: MERCY CAMPOS MD, PHD on Sep 29 2012 2:38P Procedure Note Provider, MD Vianney - 09/15/2016 MERCY CAMPOS MD, PHD TORIE YEAGER M.D. FINAL REPORT The radiology attending physician has personally reviewed this study, and has reviewed and/or edited this written report and agrees with it. ACC# Date Time Exam [id number] September 29, 2012 11:01:00 [facility] [id number] Diag Mammogram Unilateral L Technologist(s): Nancy Lance; ; [id number] September 29, 2012 11:01:00 [facility] [id number] Unilateral Tomosynthesis L Technologist(s): Nancy Lance; ; [id number] September 29, 2012 11:33:00 [facility] [id number] Sono Breast (Bilateral) [id number] September 29, 2012 12:37:00 [facility] [id number] Consult Out Films (read) EXAMINATION: I. READING OF OUTSIDE IMAGING EXAMINATION - Bilateral digital diagnostic mammogram and Ultrasound II. LEFT FULL FIELD DIGITAL DIAGNOSTIC MAMMOGRAM AND BILATERAL BREAST SONOGRAM HISTORY: 37-year-old woman with an abnormal baseline mammogram from another institution. Per report, no subsequent mammographic abnormalities were identified on the diagnostic examination; however, biopsy was recommended for bilateral findings seen by ultrasound, including a shadowing area of concern in the RIGHT breast at 7:00 and a subcentimeter mass in the the LEFT breast at 7:00-8:00. Interpretation of the patient's outside mammogram is requested by Dr. Nash who is seeing the patient in Breast Surgery Clinic today. Also, diagnostic imaging evaluation is requested, if indicated. I. EXAMINATION - READING OF OUTSIDE IMAGING EXAMINATION - Bilateral mammogram and ultrasound performed at [facility] on 09/21/2012 DATE OF INTERPRETATION: 09/29/2012 COMPARISON: Screening baseline mammogram dated 06/10/2012 performed at [facility] BREAST PARENCHYMAL COMPOSITION: Heterogeneously dense, which could obscure detection of small masses. FINDINGS: There is a focal asymmetry within the upper central LEFT breast. There are no suspicious masses, architectural distortion, or calcifications within the RIGHT breast. Review of static ultrasound images of both breasts show a possible area of shadowing within the RIGHT breast at 7:00, anterior depth approximately 9.5 cm from the nipple and a 5 mm lobular nearly anechoic mass in the LEFT breast at 7-8:00 approximately 7 cm from the nipple. Additional tomographic images of the LEFT breast will be obtained to evaluate for the focal asymmetry identified. BILATERAL ultrasound will also be performed for the areas of concern within both breasts on outside imaging. II. LEFT FULL FIELD DIGITAL DIAGNOSTIC MAMMOGRAM AND BILATERAL BREAST SONOGRAM MAMMOGRAM TECHNIQUE: Additional views of the LEFT breast were obtained utilizing full field digital mammography. BREAST PARENCHYMAL COMPOSITION: Heterogeneously dense, which could obscure detection of small masses. MAMMOGRAM FINDINGS: Additional views of the LEFT breast demonstrate that the focal asymmetry may simply represent normal tissue; no focal mass or distortion is identified. Given the patient's dense parenchyma, targeted ultrasound of this area was also performed. SONOGRAM FINDINGS: Directed sonogram of the upper central LEFT breast was performed. No focal abnormal solid or cystic lesion is identified in the vicinity of the mammographic finding of concern. Directed sonogram of the lower inner LEFT breast was performed. At 8:00 approximately 6 cm from the nipple, there is a 5 mm lobular anechoic circumscribed mass which corresponds to the area of concern on the prior outside ultrasound, which is compatible with a simple cyst. Directed sonogram of the lower outer RIGHT breast was performed, with especial attention to the 7:00 axis. No focal abnormal solid or cystic lesion is identified in the vicinity of the finding of concern on recent screening mammogram. IMPRESSION: 1) Finding of concern on the outside ultrasound in the lower inner LEFT breast corresponds with a subcentimeter simple cyst. 2) No suspicious abnormality is confirmed in the area of concern in the lower outer RIGHT breast. 3) No suspicious abnormality is confirmed in the upper central LEFT breast. 4) Annual screening mammography is recommended. OVERALL FINAL ASSESSMENT: BI-RADS Category 2: Benign finding. These findings were communicated in writing by Dr. Campos to Dr. Nash, who is seeing the patient in surgery clinic today. Requested By: LUISA NASH M.D. Dictated By: TORIE YEAGER M.D. on Sep 29 2012 12:59P This document has been electronically signed by: MERCY CAMPOS MD, PHD on Sep 29 2012 2:38P Historical Provider MD HERRERA MAMMO PROCEDURES Jolynn l Result from Last 3 Months or Most Recently Relevant to Health Maintenance Insurance [employer] ACCESS BLUE ACCESS OOS BLUE ACC CHOICE OOS [employer] CHOICE [employer]ICE Care Teams Bus Driver/Monitor Relationship Specialty Start Date End Date Felice Lucas MD PCP - General 05/24/21 Ute Birmingham MD [address]22 [address] [id number] Referring Physician Gynecology 02/19/23
--- OUTSIDE RECORDS SUMMARY | 2024-07-21 10:57 | XMS_ITS | Referral Summary ---
Author Organization [facility] Address [address] [place] [address] Care Team Providers Care Manager Order Name Role Phone Felice Lucas MD Primary Care Provider [phone] Ute Birmingham MD Unavailable [phone] Allergies No known active allergies Medications .10/13, 21, 1.5-30 mg-mcg tablet per tablet 02/11/2023 A ctive Active Problems Problem Noted Date Diagnosed Date Mass of breast 09/23/2012 Social History Tobacco Use Types Packs/Day Years Used Date Smoking Tobacco: Never Smokeless Tobacco: Never Tobacco Cessation:Counseling Given: Not Answered Personal Safety Answer Date Recorded Getting School Help Needed Not on file 01/21 Comments No Sex and Gender Information Value Date Recorded Sex Assigned at Not on file 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 Gender Identity Not on file Sexual Orientation [...] 90.7 kg (200 lb) 04/02/2023 8:01 AM SWEEPER CLEANER INDUSTRIAL Height 157.5 cm (5' 2 ) 04/02/2023 8:01 AM SWEEPER CLEANER INDUSTRIAL Body Mass Index 36.58 04/02/2023 8:01 AM SWEEPER CLEANER INDUSTRIAL Plan of Treatment Not on file Medical Devices Implanted Type Area Performance Reporter Device Identifier Shelf Expiration Date Model / Serial / Lot Bard Peripheral Vascular Ultraclip Bard 17ga 10cm 2 Trigger Permanent Ultrasound [id number] - [id number] Implanted:Qty: 1 on 04/14/2023 at [facility] [employer] [id number] / / Procedures Procedure Name Priority Date/Time [...] agrees with it. ACC# Date Time Exam [id number] September 29, 2012 11:01:00 [facility] [id number] Diag Mammogram Unilateral L Technologist(s): Nancy Lance; ; [id number] September 29, 2012 11:01:00 [facility] [id number] Unilateral Tomosynthesis L Technologist(s): Nancy Lance; ; [id number] September 29, 2012 11:33:00 [facility] [id number] Sono Breast (Bilateral) [id number] September 29, 2012 12:37:00 [facility] [id number] Consult Out Films (read) EXAMINATION: I. READING [...] - Bilateral mammogram and ultrasound performed at [facility] on 09/21/2012 DATE OF INTERPRETATION: 09/29/2012 COMPARISON: Screening baseline mammogram dated 06/10/2012 performed at [facility] BREAST PARENCHYMAL COMPOSITION: Heterogeneously dense, which [...] agrees with it. ACC# Date Time Exam [id number] September 29, 2012 11:01:00 [facility] [id number] Diag Mammogram Unilateral L Technologist(s): Nancy Lance; ; [id number] September 29, 2012 11:01:00 [facility] [id number] Unilateral Tomosynthesis L Technologist(s): Nancy Lance; ; [id number] September 29, 2012 11:33:00 [facility] [id number] Sono Breast (Bilateral) [id number] September 29, 2012 12:37:00 [facility] [id number] Consult Out Films (read) EXAMINATION: I. READING [...] - Bilateral mammogram and ultrasound performed at [facility] on 09/21/2012 DATE OF INTERPRETATION: 09/29/2012 COMPARISON: Screening baseline mammogram dated 06/10/2012 performed at [facility] BREAST PARENCHYMAL COMPOSITION: Heterogeneously dense, which [...] MD, PHD on Sep 29 2012 2:38P us Historical Provider IMDanny MAMMO PROCEDURES Jolynn l Result from Last 3 Months or Most Recently Relevant to Health Maintenance Insurance [facility] [employer] ACCESS OOS BLUE ACC CHOICE [place] [address] ANTHEM ACCESS CHOICE ANTHEM ACCESS CHOICE Care Teams Manager Order Relationship Specialty Start Date End Date Felice Lucas MD PCP - General 05/24/21 Ute Birmingham MD [address] [place] [address] Referring Physician Gynecology 02/19/23
== END 2024-07-21 09:57 | disposition home or self-care (01) ==
PROVIDERS: PCP Internal Medicine; Visit Provider Internal Medicine
DX: R00.2 Palpitations (principal)
CPT/HCPCS: 78452; 93017; A9502